=== PATIENT | male | born 1960 | race Caucasian/White ===

== ENCOUNTER 2018-07-08 17:59 | Emergency (ER) | payer OTHER ==
[2018-07-08] MEDS: HYDROCODONE/APAP (5/325) TAB PO (19:28)
[2018-07-08] MEDS: KETOROLAC 30 MG INJ IM (19:28)
== END 2018-07-08 20:43 | disposition home or self-care (01) ==
LOC: FTE 20:43
DX: M25.511 Pain in right shoulder (principal); I10 Essential (primary) hypertension; Z79.82 Long term (current) use of aspirin
CPT/HCPCS: 73030; 73030-RT; 96372; 99284-25